=== PATIENT | female | born 1960 | race Caucasian/White ===

== ENCOUNTER → 2016-07-12 08:51 | Outpatient (CLI) | payer OTHER ==
[2016-07-12 09:49] LABS: ALBUMIN 3.7 g/dL (3.4-5.0); BILIRUBIN - DIRECT 0.1 mg/dL (0.00-0.30); BILIRUBIN - INDIRECT 0.3 mg/dL (0.00-1.00); BILIRUBIN - TOTAL 0.4 mg/dL (0.2-1.3); PROTEIN - SERUM 7.4 g/dL (6.4-8.2)
== END | disposition home or self-care (01) ==
LOC: D.US 08:51
PROVIDERS: Internal Medicine Gastroenterology
DX: K76.0 Fatty (change of) liver, not elsewhere classified (principal)

== ENCOUNTER → 2016-10-18 17:21 | Outpatient (CLI) | payer OTHER | END | disposition home or self-care (01) | LOC: D.MAMMO 16:00 | DX: Z12.31 Encounter for screening mammogram for malignant neoplasm of breast (principal) ==

== ENCOUNTER → 2017-01-10 09:05 | Outpatient (CLI) | payer OTHER ==
[2017-01-10 10:31] LABS: ALBUMIN 3.5 g/dL (3.4-5.0); BILIRUBIN - DIRECT 0.06 mg/dL (0.00-0.30); BILIRUBIN - INDIRECT 0.28 mg/dL (0.00-1.00); BILIRUBIN - TOTAL 0.34 mg/dL (0.2-1.3); PROTEIN - SERUM 6.8 g/dL (6.4-8.2)
== END | disposition home or self-care (01) ==
LOC: D.US 09:05
PROVIDERS: Internal Medicine Gastroenterology
DX: K76.0 Fatty (change of) liver, not elsewhere classified (principal)

== ENCOUNTER 2017-03-20 04:07 | Observation (INO) | payer OTHER ==
--- NOTE | ~2017-03-20 | HEMODYNAMI ---
PATIENT:KALEB REYES MEDICAL RECORD: [id number] : 62 [facility] [place] [id number] ADMISSION DATE: 03/20/17 Generatedon:03/20/201715:02 Patient name: KALBE REYES Patient #: [id number] SSN: D OB: 1960 Date of study: 03/20/2017 Page: Of Hemodynamic Procedure Report Patient Data Patient Demographics Procedure consent was obtained First Name: KALEB Gender: Female Last Name: ERIC : 1960 [facility] Initial: R Age: 56 year(s) Patient #: [id number] Race: Unknown Additional ID: [id number] Contact details [address]: [address] [place] [address] rd State: [place] City: [facility] Zip code: [address] Admission Admission Data Admission Date: 03/20/2017 Admission Time: 6:04 Room #: D.2122 Lab Results Lab Result Date: 03/20/2017 Lab Result Time: 0:00 Biochemistry Name Units Result Min Max BUN mg/dl 12 --(-*--)-- 7 18 Creatinine mg/dl 0.9 --(-*--)-- 0.6 1.3 CBC Name Units Result Min Max Hemoglobin g/dl 13.1 -*(----)-- 13.5 17.5 Procedure Procedure Types Cath Procedure Diagnostic Procedure [facility] w/Coronaries Miscellaneous Procedures Moderate Sedation up to 15 minutes Procedure Description Procedure Date Procedure Date: 03/20/2017 Procedure Start Time: 14:56 Procedure End Time: 15:01 Procedure Staff Name Function Pritesh Landis MD Performing Physician Emily Munoz RT Scrub Nani Redman RN Nurse Charmaine Zacarias RT Monitor Procedure Data Cath Procedure Fluoroscopy Diagnostic fluoroscopy Total fluoroscopy Time: 0.8 time: 0.8 min min Diagnostic fluoroscopy Total fluoroscopy dose: 307 dose: 307 mGy mGy Contrast Material Contrast Material Type Amount (ml) Isovue 300 40 Entry Location Entry Primary Successful Side Size Upsize Upsize Entry Closure [place] ccessful Closure Location (Fr) 1 (Fr) 2 (Fr) Remarks Device Remarks Radial Right 6 Fr Mechanical artery Short Compression Estimated blood loss: 5 ml Diagnostic catheters Device Type Used For End Catheter Placement Diagnostic Terumo 5Fr Multi-vessel [place] 110cm catheter Angiography Procedure Complications No complications Procedure Medications Medication Administration Route Dosage Oxygen NC 2 l/min Heparin Flush Bag added to field 2 bags (1000units/500ml NS) Lidocaine 2% added to field 20 Radial Cocktail added to field 1 syringe (Verapomil 2mg/Nitro 400mcg/Heparin 1500units) Radial Cocktail I.A. 1 syringe (Verapomil 2mg/Nitro 400mcg/Heparin 1500units) Fentanyl I.V. 50 mcg Versed I.V. 1 mg Hemodynamics Rest HGB: 13.1 (g/dl) Heart Rate: 65 (bpm) Pressure Samples Time Site Value (mmHg) Purpose Heart Use Rate(bpm) 14:57 LV 113/9,14 Snapshot 63 14:57 AO 101/65(81) Pullback 65 14:57 LV 100/7,11 Pullback 65 Gradients Valve Time Site 1 Site 2 Mean SEP/DFP Peak To Heart Use (mmHg) (sec/min) Peak Rate (mmHg) (bpm) Aortic 14:57 LV AO 0 6 0 65 100/7,11 101/65(81) Calculations Valve P-P Mean Valve Index Valve Source Name Gradient Area Flow (cm2) Aortic 0 0 0 0 Snapshots Pre Cath Intra NCS Post Cath Vital Signs Time Heart Resp SPO2 etCO2 NIBP (mmHg) Rhythm Pain Sedation Rate (ipm) (%) (mmHg) Status Level (bpm) 14:46:43 61 18 97 0 120/73(103) NSR 0 (11) 10(A) , No pain 14:50:59 105 16 96 0 119/71(97) NSR 0 (11) 10(A) , No pain 14:55:13 57 12 94 0 115/60(91) NSR 0 (11) 10(A) , No pain 14:59:23 75 16 96 0 97/65(83) NSR 0 (11) 10(A) , No pain Medications Time Medication Route Dose Verified Delivered Reason Notes Effectiveness by by 14:50:24 Oxygen NC 2 l/min Nani Nani used for Redman Redman net developer with [facility] RN 14:50:31 Heparin Flush added 2 bags Nani Nani used for Bag to Redman Redman procedure (1000units/500ml field RN RN NS) 14:50:38 Lidocaine 2% added 20ml Nani Nani used for to vial Redman Redman procedure field RN RN 14:50:43 Radial Cocktail added 1 Nani Nani used for (Verapomil to syringe Redman Redman procedure 2mg/Nitro field RN RN 400mcg/Heparin 1500units) 14:52:24 Fentanyl I.V. 50 mcg Nani Nani for sedation Feroz Redman RN RN 14:52:34 Versed I.V. 1 mg Nani Nani for sedation Redmanjc Redman RN RN 14:56:03 Radial Cocktail I.A. 1 Nani Pritesh for (Verapomil syringe Redman [place] vasodilation 2mg/Nitro RN 400mcg/Heparin 1500units) Procedure Log Time Note 14:25:16 Nani Redman RN sent for patient. Start room use. 14:25:19 Time tracking: Regular hours 14:25:23 Plan of Care:Hemodynamics will remain stable., Cardiac rhythm will remain stable., Comfort level will be maintained., Respiratory function will remain adequate., Patient/ family verbilizes understanding of procedure., Procedure tolerated without complication., Recovers from procedure without complications.. 14:38:42 Patient received from PCU to [facility] 2 Alert and oriented. Tansferred to table in Supine position. 14:38:43 Warm blankets applied, and sukh hugger turned on for patient comfort. 14:38:43 Correct patient and procedure confirmed by team. 14:38:44 Signed procedure consent form obtained from patient. 14:38:45 ECG and BP/O2 sat monitors applied to patient. 14:38:46 Full Disclosure recording started 14:45:38 Vital chart was started 14:47:39 Baseline sample Acquired. 14:47:43 Rhythm: sinus rhythm 14:47:54 H&P Date Dictated: 03/20/2017 New H&P dictated by physician.. 14:47:55 Pre-procedure instructions explained to patient. 14:47:55 Pre-op teaching completed and patient verbalized understanding. 14:47:56 Family in waiting room. 14:47:58 Patient NPO since Midnight. 14:48:06 Is the patient allergic to Iodine/contrast media? No. 14:48:07 Was the patient premedicated? No 14:48:15 Is patient on blood thinner?No 14:48:17 Patient diabetic? Yes. 14:48:17 If diabetic: On Metformin? Yes 14:48:21 If on Metformin: Last Dose? 03/19/2017 14:48:24 Previous problem with sedation/anesthesia? No ? 14:48:26 Snore? Yes 14:48:27 Sleep apnea? No 14:48:28 Deviated septum? No 14:48:28 Opens mouth fully? Yes 14:48:29 Sticks out tongue? Yes 14:48:31 Airway obstruction? No ? 14:48:35 Dentures? Yes in tight 14:48:48 Pre procedure: right dorsailis pedis pulse 1+ Palpable, but thready & weak; easily obliterated 14:48:50 Pre procedure: left dorsailis pedis pulse 1+ Palpable, but thready & weak; easily obliterated 14:48:52 Patient pain scale 0/10 ?. 14:49:00 IV patent on arrival in left antecubital with 0.9% NaCl at [facility]. 14:49:17 Lab Result : BUN 12 mg/dl 14:49:17 Lab Result : Hemoglobin 13.1 g/dl 14:49:17 Lab Result : Creatinine 0.9 mg/dl 14:49:21 Lab results completed and on chart. 14:50:24 Oxygen 2 l/min NC was administered by Nani Redman RN; used for procedure; 14:50:31 Heparin Flush Bag (1000units/500ml NS) 2 bags added to field was administered by Nani Redman RN; used for procedure; 14:50:38 Lidocaine 2% 20ml vial added to field was administered by Nani Redman RN; used for procedure; 14:50:43 Radial Cocktail (Verapomil 2mg/Nitro 400mcg/Heparin 1500units) 1 syringe added to field was administered by Nani Redman RN; used for procedure; 14:51:18 Right Radial & Right Groin area was prepped with chlora-prep and draped in sterile fashion 14:51:19 Alarms reviewed by R. N. 14:51:20 Sharps counted by scrub and verified by RRafael 14:51:21 Physician arrived 14:: --------ALL STOP TIME OUT------ 14:: Final Timeout: patient, procedure, and site verified with staff and physician. All members of the team are in agreement. 14:51:24 Right Radial & Right Groin site verified by team. 14:51:27 Physical assessment completed. ASA score P 2 - A patient with mild systemic disease as per Pritesh Ladnis MD. 14:51:31 Sedation plan: IV Moderate Sedation Versed, Fentanyl 14:52:24 Fentanyl 50 mcg I.V. was administered by Nani Redman RN; for sedation; 14:52:32 Use device set Radial Dx 14:52:34 Versed 1 mg I.V. was administered by Nani Redman RN; for sedation; 14:52:35 Acist Syringe opened to sterile field. 14:52:36 Medline Cath Pack opened to sterile field. 14:52:36 Bag Decanter opened to sterile field. 14:52:36 Terumo 6Fr Slender Glidesheath opened to sterile field. 14:52:37 [place] 260cm J .035 wire opened to sterile field. 14:52:37 Acist Hand Control opened to sterile field. 14:52:38 Acist Manifold opened to sterile field. 14:52:38 Tegaderm 4 x 4 opened to sterile field. 14:52:39 MBrace Wrist Support opened to sterile field. 14:55:57 Zero performed for pressure channel P1 14:56:01 Zero performed for pressure channel P1 14:56:03 Radial Cocktail (Verapomil 2mg/Nitro 400mcg/Heparin 1500units) 1 syringe I.A. was administered by Pritesh Landis MD; for vasodilation; 14:56:27 Procedure started. 14:56:32 Local anesthetic to right radial artery with Lidocaine 2% by Pritesh Landis MD.INITIAL ACCESS ONLY 14:56:39 A 6 Fr Short sheath was inserted into the Right Radial artery 14:56:58 A Diagnostic Terumo 5Fr [place] 110cm catheter was advanced over the wire and used for Multi-vessel Angiography. 14:57:28 LV hemodynamics recorded. 14:57:29 LV gram done using HERCULES 14:57:31 Injector settings: Ml/sec: 5, Volume: 15, 14:57:48 EF : 55 % 14:58:07 LCA angiography performed. 14:58:10 Injector settings: Ml/sec: 3, Volume: 6, 14:58:57 RCA angiography performed. 14:59:02 Injector settings: Ml/sec: 3, Volume: 6, 14:59:06 Catheter removed. 14:59:34 Terumo TR Band Standard opened to sterile field. 14:59:45 Sheath removed intact; hemostasis achieved with Mechanical Compression to the Right Radial artery. 14:59:46 Procedure ended.(Physican Out) 15:00:28 Fluoroscopy time 00.80 minutes. 15:00:38 Fluoroscopy dose: 307 mGy 15:00:38 Flurop Dose total: 307 15:00:42 Contrast amount:Isovue 300 40ml. 15:00:44 Sharps counted by scrub and verified by R.N. 15:00:47 TR band inflated with 10cc of air. 15:00:49 Insertion/operative site no bleeding no hematoma. 15:00:53 Post right radial artery:stable 15:00:57 Post procedure rhythm: unchanged. 15:01:00 Estimated blood loss: 5 ml 15:01:01 Post procedure instruction explained to patient.Patient verbalizes understanding. 15:01:02 Patient needs reinforcement of post procedure teaching. 15:01:16 Procedure type changed to Cath procedure, Diagnostic procedure, LHC, LHC w/Coronaries, Miscellaneous Procedures, Moderate Sedation up to 15 minutes 15:01:18 Procedure and supply charges have been captured, reviewed, submitted and are correct. 15:01:23 Procedure Complication : No complications 15:01:26 Vital chart was stopped 15:01:26 See physician's report for complete and final results. 15:01:30 Report given to [facility] II. 15:01:32 Patient transfered to Med II with Stretcher. 15:01:34 Procedure ended. 15:01:34 Full Disclosure recording stopped 15:01:38 End room use (Document Last) Device Usage Item Name Manufacture Quantity Catalog Hospital Part Current Minimal Lot# / Number Charge Number Stock Stock Serial# Code [facility] 04202 354041 427731 [id number] 20 [employer] Medline Cardinal 1 [id number] 56174 256282 5 Cath Pack Health Bag Microtek 1 953017 01585 693416 5 [employer] Terumo 6Fr Terumo 1 [id number] 313485 746169 109563 [address] [facility] 1 [id number] 501371 920463 794616 30 260cm J .035 wire Acist Hand Acist 1 51928 507822 618114 521519 5 Control [employer] Inc Acist Acist 1 89819 822814 712233 983814 5 Manifold [employer] Inc Tegaderm 4 3M 1 1626W 990884 845630 420841 5 x 4 MBrace Advanced 1 140-0250-00 598716 37929 698296 5 Wrist Vascular Support Dynamics Diagnostic Terumo 1 43-3864 162187 237040 693594 5 Terumo 5Fr [place] 110cm catheter Terumo TR Terumo 1 [id number] 270048 023812 628105 40 Band Standard Signature Audit [place] Stage Time Signature Unsigned Intra-Procedure 03/20/2017 Charmaine Zacarias 3:02:07 PM RT(R) Signatures Monitor : Charmaine Zacarias RT Signature : Date : Time : [id number] [place] [address]
[2017-03-20 04:41] LABS: BASOPHILS 0.8 % (0-2); EOSINOPHILS 3.5 % (0-7); HEMATOCRIT 40.3 % (36.0-48.0); HEMOGLOBIN 13.1 g/dL (12-16); IMMATURE GRANULOCYTES 0.1 % (0-5); LYMPHOCYTES 27.8 % (15-50); MCH 28.9 pg (26.0-34.0); MCHC 32.5 g/dL (31.0-37.0); MCV 88.8 fL (80.0-100.0); MONOCYTES 6.8 % (2-11); PLATELET COUNT 253 10x3/uL (130-400); RBC 4.54 10x6/uL (4.00-5.40); RDW 13.7 % (11.5-14.5); WBC 7.2 10x3/uL (4.8-10.8)
[2017-03-20 04:53] LABS: APTT 27.2 SECONDS (22.8-39.4); INR 0.89 (0.85-1.17); PROTIME 11.9 SECONDS (11.6-15.0)
[2017-03-20 04:54] LABS: D-DIMER-QUANTITATIVE 0.4 ug/mLFEU (0.20-0.54)
[2017-03-20 04:58] LABS: ALBUMIN 3.5 g/dL (3.4-5.0); ALKALINE PHOSPHATASE 69 U/L (46-116); ALT (SGPT) 32 U/L (10-68); BILIRUBIN - TOTAL 0.29 mg/dL (0.2-1.3); CALC OSMOLALITY 282 mosm/kg (275-300); CARBON DIOXIDE 28.7 mmol/L (21.0-32.0); CHLORIDE - SERUM 104 mmol/L (98-107); CREATININE - SERUM 0.9 mg/dL (0.6-1.3); GLUCOSE 168 mg/dL (74-106); POTASSIUM - SERUM 3.7 mmol/L (3.5-5.1); PROTEIN - SERUM 7.1 g/dL (6.4-8.2); SODIUM 140 mmol/L (136-145); UREA NITROGEN 12 mg/dL (7-18); eGFR NON AFRICAN AMERICAN 69 mL/min (90-120)
[2017-03-20 05:10] LABS: CKMB 0.2 U/L (0.0-3.6); CREATINE KINASE 61 UL (21-215)
[2017-03-20 05:13] LABS: TROPONIN-I < 0.017 ng/mL (0.000-0.060)
--- NOTE | 2017-03-20 06:30 | NUR ---
PT ARRIVES VIA WC TO ROOM FROM ER. ASSISTED INTO BED. PLACED ON TELEMETRY, NSR HR 68. DENIES ANY C/O PAIN UPON ARRIVAL. CALL LIGHT PLACED WITHIN REACH. MEDICATIONS RECONCILED. PT INSTRUCTED ON STAYING NPO UNTIL SEEN BY PHYSICIAN THIS AM. VERBALIZES UNDERSTANDING.
[2017-03-20] MEDS ORDERED: TOBREX5 ML LEFT EYE (06:31)
[2017-03-20] MEDS ORDERED: PEPCID20 MG PO (06:32)
[2017-03-20] MEDS ORDERED: TAPAZOLE 5 MG TA5 MG PO (06:32)
[2017-03-20] MEDS ORDERED: PRED-FORTE 1% OP5 ML LEFT EYE (06:32)
[2017-03-20] MEDS ORDERED: LISINOPRIL10 MG PO (06:33)
[2017-03-20] MEDS ORDERED: OXYBUTYNIN CHLOR5 MG PO (06:33)
[2017-03-20] MEDS ORDERED: ESTRACE 0.5 MG0.5 MG PO (06:33)
[2017-03-20 06:35] VITALS: BP 119/68; BMI 34.0
[2017-03-20 08:00] VITALS: BP 107/66
--- NOTE | 2017-03-20 10:17 | NUR ---
WAITING FOR OPERATING ROOM ORDERLY. MONITOR SHOWS SR @ 70. WILL CONTINUE TO MONITOR.
[2017-03-20 12:16] VITALS: BP 104/62
--- NOTE | 2017-03-20 15:31 | NUR ---
BACK FROM [facility]. V/S STABLE TR BAND TO RIGHT WRIST. FINGERS WARM. DENIES ANY NEEDS. WILL BE DISCHARGED LATER TODAY.
[2017-03-20 15:32] VITALS: BP 100/61
--- NOTE | 2017-03-20 18:32 | NUR ---
DISCHARGED. IV DCD WITH TIP INTACT. TO PRIVATE CAR PER WHEEL CHAIR
--- NOTE | 2017-03-21 12:01 | OP ---
PATIENT NAME: KAELB REYES MEDICAL RECORD: [id number] :62 LOCATION:D.M2 D.2 ADMISSION DATE:03/20/17 SURGEON: JOSE SMITH MD DATE OF OPERATION: 03/20/2017 PROCEDURES: Left heart catheterization, selective coronary angiography, right radial approach. CATHETERS: [place] catheter, radial sheath. The procedure was well tolerated. The patient returned to [place]. Sheath was removed. TR band was placed. FINDINGS: Left ventriculography 30-degree HERCULES view: Normal wall motion, normal systolic function. CORONARY ANATOMY. LEFT MAIN: Left main is free of disease. LAD: Free of disease in the diagonal system. CIRCUMFLEX: Free of disease in the marginal system. RIGHT CORONARY ARTERY: Dominant artery, gives rise to PDA, free of disease. IMPRESSION: Normal systolic function, normal coronary anatomy, noncardiac chest pain. TRANSINT:[id number] Voice Confirmation ID: [id number] DOCUMENT ID: [id number] JOSE SMITH MD at 1201 CC: [id number] DICTATION DATE: 03/20/17 1504 BOX TOE CEMENTER: 03/20/17 1623 DIS IN 03/20/17 [facility] [address] [place] [address]
== END 2017-03-20 18:34 | disposition home or self-care (01) ==
LOC: D.ER 04:07 → D.M2 06:04 → OBSVTIME 06:04 → D.M2 18:34
PROVIDERS: Emergency Medicine; ADMIT Internal Medicine Interventional Cardiology
DX: R07.89 Other chest pain (principal); E11.9 Type 2 diabetes mellitus without complications; K21.9 Gastro-esophageal reflux disease without esophagitis; Z87.891 Personal history of nicotine dependence

== ENCOUNTER → 2017-07-14 08:54 | Outpatient (CLI) | payer OTHER ==
[~2017-07-14 08:54] MED LIST: ESTRACE 0.5 MG0.5 MG PO; LISINOPRIL10 MG PO; OXYBUTYNIN CHLOR5 MG PO; PEPCID20 MG PO; PRED-FORTE 1% OP5 ML LEFT EYE; TAPAZOLE 5 MG TA5 MG PO; TOBREX5 ML LEFT EYE
[2017-07-14 10:11] LABS: ALBUMIN 3.7 g/dL (3.4-5.0); BILIRUBIN - DIRECT 0.07 mg/dL (0.00-0.30); BILIRUBIN - INDIRECT 0.28 mg/dL (0.00-1.00); BILIRUBIN - TOTAL 0.35 mg/dL (0.2-1.3); PROTEIN - SERUM 7.2 g/dL (6.4-8.2)
== END | disposition home or self-care (01) ==
LOC: D.US 08:54
PROVIDERS: Internal Medicine Gastroenterology
DX: K76.0 Fatty (change of) liver, not elsewhere classified (principal)

== ENCOUNTER → 2018-01-17 07:55 | Outpatient (CLI) | payer OTHER ==
[2018-01-17 08:51] LABS: ALBUMIN 3.6 g/dL (3.4-5.0); BILIRUBIN - DIRECT 0.11 mg/dL (0.00-0.30); BILIRUBIN - INDIRECT 0.21 mg/dL (0.00-1.00); BILIRUBIN - TOTAL 0.32 mg/dL (0.2-1.3); PROTEIN - SERUM 7.2 g/dL (6.4-8.2)
== END | disposition home or self-care (01) ==
LOC: D.US 01-11 09:30 → D.LAB 01-11 10:00 → D.US 01-15 08:30 → D.LAB 01-15 09:00 → D.US 07:55
PROVIDERS: Internal Medicine Gastroenterology
DX: K76.0 Fatty (change of) liver, not elsewhere classified (principal)

== ENCOUNTER 2018-05-24 08:00 | Outpatient (CLI) | payer OTHER | END 2018-05-24 09:00 | disposition home or self-care (01) | LOC: D.MAMMO 08:00 | DX: Z12.31 Encounter for screening mammogram for malignant neoplasm of breast (principal) ==

== ENCOUNTER → 2018-07-20 07:52 | Outpatient (CLI) | payer OTHER ==
[2018-07-20 08:50] LABS: ALBUMIN 3.5 g/dL (3.4-5.0); BILIRUBIN - DIRECT 0.1 mg/dL (0.00-0.30); BILIRUBIN - INDIRECT 0.2 mg/dL (0.00-1.00); BILIRUBIN - TOTAL 0.3 mg/dL (0.2-1.3); PROTEIN - SERUM 7.2 g/dL (6.4-8.2)
== END | disposition home or self-care (01) ==
LOC: D.US 07:52
PROVIDERS: Internal Medicine Gastroenterology
DX: K76.0 Fatty (change of) liver, not elsewhere classified (principal)

== ENCOUNTER → 2019-01-09 09:32 | Outpatient (CLI) | payer OTHER ==
[2019-01-09 10:20] LABS: ALBUMIN 3.8 g/dL (3.4-5.0); BILIRUBIN - DIRECT 0.13 mg/dL (0.00-0.30); BILIRUBIN - INDIRECT 0.37 mg/dL (0.00-1.00); BILIRUBIN - TOTAL 0.5 mg/dL (0.2-1.3); PROTEIN - SERUM 7.2 g/dL (6.4-8.2)
== END | disposition home or self-care (01) ==
LOC: D.LAB 08:00 → D.US 09:30 → D.LAB 09:32
PROVIDERS: ATTEND Internal Medicine Gastroenterology
DX: K76.0 Fatty (change of) liver, not elsewhere classified (principal)

== ENCOUNTER → 2019-06-13 08:30 | Outpatient (CLI) | payer OTHER | END | disposition home or self-care (01) | LOC: D.MAMMO 08:30 | PROVIDERS: ATTEND Nurse Practitioner | DX: Z12.31 Encounter for screening mammogram for malignant neoplasm of breast (principal) ==

== ENCOUNTER → 2019-08-05 07:50 | Outpatient (CLI) | payer OTHER ==
[2019-08-05 08:29] LABS: ALBUMIN 3.8 g/dL (3.4-5.0); BILIRUBIN - DIRECT 0.06 mg/dL (0.00-0.30); BILIRUBIN - INDIRECT 0.16 mg/dL (0.00-1.00); BILIRUBIN - TOTAL 0.22 mg/dL (0.2-1.3); PROTEIN - SERUM 7.2 g/dL (6.4-8.2)
== END | disposition home or self-care (01) ==
LOC: D.LAB 07-15 08:15 → D.US 07-15 08:15 → D.LAB 07:50 → D.US 08:30
PROVIDERS: ATTEND Internal Medicine Gastroenterology
DX: K76.0 Fatty (change of) liver, not elsewhere classified (principal)

== ENCOUNTER → 2020-02-03 07:57 | Outpatient (CLI) | payer OTHER ==
[2020-02-03 08:55] LABS: ALBUMIN 3.9 g/dL (3.4-5.0); BILIRUBIN - DIRECT 0.1 mg/dL (0.00-0.30); BILIRUBIN - INDIRECT 0.27 mg/dL (0.00-1.00); BILIRUBIN - TOTAL 0.37 mg/dL (0.2-1.3); PROTEIN - SERUM 6.7 g/dL (6.4-8.2)
== END | disposition home or self-care (01) ==
LOC: D.LAB 07:57 → D.US 08:30
PROVIDERS: ATTEND Internal Medicine Gastroenterology
DX: K76.0 Fatty (change of) liver, not elsewhere classified (principal)